=== PATIENT | female | born 1960 | race Caucasian/White ===

== ENCOUNTER 2017-10-18 09:28 | Day surgery (SDC) | payer BC ==
[2017-10-18] MEDS: NS 1,000 ML IV (09:40)
[2017-10-18] MEDS ORDERED: LIDOCAINE 2% MDV 20 ML VIAL As Ordered (10:20)
[2017-10-18] MEDS ORDERED: PROPOFOL 200 MG/20 ML VIAL As Ordered (10:20)
== END 2017-10-18 11:24 | disposition home or self-care (01) ==
LOC: M OPP 09:28
DX: Z09 Encounter for follow-up examination after completed treatment for conditions other than malignant neoplasm (principal); K57.30 Diverticulosis of large intestine without perforation or abscess without bleeding; K64.8 Other hemorrhoids; K63.5 Polyp of colon; D12.2 Benign neoplasm of ascending colon; Z80.0 Family history of malignant neoplasm of digestive organs; E03.9 Hypothyroidism, unspecified; E05.00 Thyrotoxicosis with diffuse goiter without thyrotoxic crisis or storm; Z79.899 Other long term (current) drug therapy; Z88.8 Allergy status to other drugs, medicaments and biological substances; Z78.0 Asymptomatic menopausal state; Z90.89 Acquired absence of other organs; Z98.890 Other specified postprocedural states
CPT/HCPCS: 45385

== ENCOUNTER 2018-06-06 03:56 | Emergency (ER) | payer BC ==
[2018-06-06 04:49] LABS: BASO # 0.1 10^3/uL (0.0-0.2); BASO % 1.1 % (0.0-1.0); EOS # 0.2 10^3/uL (0.0-0.50); HEMATOCRIT 37.7 % (36.0-47.0); HEMOGLOBIN 12.4 g/dl (12.0-15.5); IMMATURE GRANULOCYTE % 0.2 % (0-3.0); LYMPH # 2.2 10^3/uL (1.5-4.5); LYMPH % 24.2 % (24.0-44.0); MEAN CORPUSCULAR HEMOGLOBIN 31.4 pg (27.0-33.0); MEAN CORPUSCULAR HGB CONC 32.9 g/dl (32.0-36.5); MEAN CORPUSCULAR VOLUME 95.4 fl (80.0-96.0); MONO # 0.7 10^3/uL (0.0-0.8); MONO % 7.5 % (0.0-5.0); NEUTROPHILS # 5.8 10^3/uL (1.8-7.7); PLATELET COUNT, AUTOMATED 263 10^3/uL (150-450); RED BLOOD COUNT 3.95 10^6/uL (4.00-5.40); RED CELL DISTRIBUTION WIDTH 12.9 % (11.5-14.5); WHITE BLOOD COUNT 8.9 10^3/uL (4.0-10.0)
[2018-06-06] MEDS: methylPREDNISolone INJ 125 MG/2 ML VIAL (J2930) IV (05:00)
[2018-06-06] MEDS: IPRATROPIUM 0.5MG/ALBUTEROL 2.5MG INH SOL UD 3ML (DUONEB)(J7620) NEB (05:04)
[2018-06-06 05:05] LABS: INR 0.91; PROTHROMBIN TIME 12.4 SECONDS (12.1-14.4)
[2018-06-06 05:06] LABS: PARTIAL THROMBOPLASTIN TIME 26.2 SECONDS (25.4-37.6)
[2018-06-06 05:25] LABS: ANION GAP 9 MEQ/L (8-16); BLOOD UREA NITROGEN 11 MG/DL (7-18); CALCIUM LEVEL 7.9 MG/DL (8.5-10.1); CARBON DIOXIDE LEVEL 25 MEQ/L (21-32); CHLORIDE LEVEL 111 MEQ/L (98-107); CPK CREATINE PHOSPHOKINASE 88 U/L (26-192); CREATININE FOR GFR 0.66 MG/DL (0.55-1.30); GLOMERULAR FILTRATION RATE > 60.0 (>51); GLUCOSE, FASTING 87 MG/DL (70-100); POTASSIUM SERUM 4.4 MEQ/L (3.5-5.1); SODIUM LEVEL 145 MEQ/L (136-145); TROPONIN I 0.03 NG/ML (< 0.10)
[2018-06-06 05:26] LABS: CK-MB VALUE MASS 2.4 NG/ML (<3.6); MB/CK RELATIVE INDEX 2.72 (< OR =4)
== END 2018-06-06 06:50 | disposition home or self-care (01) ==
LOC: M ED 03:56
DX: R07.89 Other chest pain (principal); R00.1 Bradycardia, unspecified; I10 Essential (primary) hypertension; I37.9 Nonrheumatic pulmonary valve disorder, unspecified; F17.200 Nicotine dependence, unspecified, uncomplicated; Z88.6 Allergy status to analgesic agent; Z79.899 Other long term (current) drug therapy
CPT/HCPCS: J2930

== ENCOUNTER 2020-12-25 07:43 | Emergency (ER) | payer BC ==
[~2020-12-25] VITALS: Ht 154.9 cm; Wt 79.2 kg
[~2020-12-25 07:43] MED LIST: D-3-50003 PO; LEVO112T2; PRED20TA PO
[2020-12-25] MEDS ORDERED: LEVO88TA3 (07:51)
[2020-12-25] MEDS ORDERED: VALA1TAB5 (07:51)
[2020-12-25] MEDS ORDERED: ACET-897 PO (07:51)
--- NOTE | 2020-12-25 08:34 | REP ---
INDICATION: fall injury. COMPARISON: None. TECHNIQUE: Four views of the left wrist. FINDINGS: There is diffuse osteopenia. Moderate osteoarthritis is seen at the 1st carpometacarpal articulation. There is some osteoarthritic spurring at the 1st MCP joint as well. There is no evidence of fracture or subluxation. IMPRESSION: Osteoarthritic changes. No fracture seen. <Electronically signed by Ken Ramirez > 12/25/20 1103
--- NOTE | 2020-12-25 09:14 | REP ---
INDICATION: fall. COMPARISON: No comparison hand radiographs.. TECHNIQUE: Four views of the left hand. FINDINGS: Four views of the left hand demonstrate fairly advanced osteoarthritis at the 1st carpometacarpal articulation. There is mild osteoarthritic spurring at the 1st MCP and IP joints. Moderate osteoarthritis is seen at the DIP joint of the index finger with associated swelling. DIP osteoarthritic spurring is noted at the long, ring, and small fingers as well. No fracture or subluxation is seen. IMPRESSION: Osteoarthritic changes as above. No fracture or other traumatic abnormality seen.. <Electronically signed by Ken Ramirez > 12/25/20 1241
--- NOTE | 2020-12-25 09:16 | REP ---
INDICATION: fall. COMPARISON: None. TECHNIQUE: Four views of the left elbow. FINDINGS: Four views of the left elbow demonstrate coronoid and olecranon process osteoarthritic spurring. There is no evidence of fracture, subluxation, or joint effusion.. . No opaque foreign body noted. IMPRESSION: Osteoarthritic spurring of the proximal ulna. No fracture or other traumatic abnormality seen.. <Electronically signed by Ken Ramirez > 12/25/20 0942
[2020-12-25 11:34] VITALS: BP 128/72
== END 2020-12-25 11:35 | disposition home or self-care (01) ==
LOC: M ED 07:43
DX: S60.222A Contusion of left hand, initial encounter (principal); S63.92XA Sprain of unspecified part of left wrist and hand, initial encounter; S53.402A Unspecified sprain of left elbow, initial encounter; W01.0XXA Fall on same level from slipping, tripping and stumbling without subsequent striking against object, initial encounter; Y92.410 Unspecified street and highway as the place of occurrence of the external cause; Y93.9 Activity, unspecified; Y99.9 Unspecified external cause status; F17.200 Nicotine dependence, unspecified, uncomplicated; M25.722 Osteophyte, left elbow; M19.042 Primary osteoarthritis, left hand; M25.742 Osteophyte, left hand; M85.832 Other specified disorders of bone density and structure, left forearm; Z88.8 Allergy status to other drugs, medicaments and biological substances

== ENCOUNTER → 2020-12-26 | Outpatient (CLI) | payer BC ==
[~2020-12-26] MED LIST changes: +ACET-897 PO; +LEVO88TA3; +VALA1TAB5
--- NOTE | 2020-12-27 04:29 | REP ---
INDICATION: PAIN IN LEFT WRIST. COMPARISON: 12/25/2020 TECHNIQUE: AP and lateral views of the left wrist FINDINGS: Moderate osteoarthritic degenerative changes at the 1st and 2nd carpometacarpal joints. No acute fracture or dislocation. IMPRESSION: No acute fracture or dislocation appreciated. <Electronically signed by Larry Amaya > 12/27/20 0424
== END ==
LOC: M SOG 15:09
PROVIDERS: ATTEND Orthopaedic Surgery Sports Medicine
DX: M25.532 Pain in left wrist (principal)